=== PATIENT | female | born 1960 | race Caucasian/White ===

== ENCOUNTER → 2017-06-03 | Outpatient (CLI) | payer OTHER ==
[~2017-06-03] MED LIST: CHOL100010 PO; DOCU-94 PO; KETO10TA PO; MULT-506 PO; OXYC-57 PO
--- NOTE | 2017-06-03 08:33 | DIAGNOSTIC IMAGING REPORT ---
RIGHT UPPER EXT JOINT WITHOUT CLINICAL HISTORY: 56 years-old Female with acute right shoulder pain with stiffness and decreased range of motion. History of nonspecific calcium deposit with associated removal in October 2016. COMPARISON: Right shoulder radiographs 05/13/2017 TECHNIQUE: Multiplanar, multi sequence MRI of the right shoulder was performed without intravenous contrast. FINDINGS: ROTATOR CUFF: There is evidence of prior rotator cuff repair with screws fixating the insertional supraspinatus and infraspinatus tendons with screws traversing the anterior and posterior facets of the greater tuberosity. Minimal subcortical cystic changes are seen adjacent to the screw paths. Micrometallic artifact is seen within the adjacent soft tissues. There is moderate thickening of the supraspinatus tendon with moderate to severe thickening of the infraspinatus tendon. There is associated intermediate intrasubstance signal within both of these structures suggesting background tendinosis. There is mild fraying/low-grade partial articular sided tearing of the insertional fibers of the posterior insertional infraspinatus tendon, nicely seen on image 5 of the sagittal T2 series, 5 mm in AP dimension which is not well seen on the coronal series. No high-grade or full-thickness tear identified. The infraspinatus and subscapularis tendons are intact. Muscle signal and morphology is within normal limits without significant atrophy or muscular edema. BICEPS TENDON: The long head biceps tendon is intact. There is mild thickening with intermediate T2 signal noted within the intra-articular portion compatible with mild tendinosis. The biceps john and anchor are intact. LABRUM: There is fraying and irregularity with immediate T2 signal noted involving the superior labrum, greatest anteriorly without discrete acute tear or paralabral cyst identified. GLENOHUMERAL JOINT: Mild osteoarthritis is noted with chondral thinning and minimal marginal spurring. No intra-articular body identified. No large joint effusion. ACROMIOCLAVICULAR JOINT: Mild AC joint osteoarthritis. The acromion has a smooth undersurface. There is trace subacromial/subdeltoid bursitis. OUTLET SPACES: The suprascapular notch and quadrilateral space are without obstructing or space occupying lesions. BONE MARROW: No focal abnormality, fracture or marrow occupying lesion. Minimal patchy edema like signal is present within the humeral head and greater tuberosity, nonspecific. Mild bone marrow edema involves the AC joint, likely reactive. SOFT TISSUES: The periarticular soft tissues are unremarkable. IMPRESSION: 1. Evidence of prior rotator cuff repair with cannulated screws fixating the supraspinatus and infraspinatus tendons within the anterior and posterior facets of the greater tuberosity. 2. There is background moderate supraspinatus and moderate to severe infraspinatus tendinopathy with low-grade partial thickness articular sided tearing of the posterior insertional infraspinatus tendon. No high-grade partial or full-thickness rotator cuff re-tear identified. 3. Mild tendinosis of the intra-articular long head biceps tendon. 4. Mild glenohumeral and acromioclavicular osteoarthritis with trace subacromial/subdeltoid bursitis. The above report was generated using voice recognition software. It may contain grammatical, syntax or spelling errors. Electronically signed by: Matias Pascual M.D. 06/03/2017 8:32 AM Dictated Date/Time: 06/03/2017 8:18 AM
== END | disposition home or self-care (01) ==
LOC: C.MRIBC 07:33
PROVIDERS: ATTEND Orthopaedic Surgery
DX: M75.101 Unspecified rotator cuff tear or rupture of right shoulder, not specified as traumatic (principal)

== ENCOUNTER → 2017-06-03 | Outpatient (CLI) | payer OTHER ==
[2017-06-03 12:16] LABS: BASO % 0.5 %; BASO ABS # 0.03 K/uL (0-0.2); COMPLETE YES; EOS % 0.9 %; HEMATOCRIT 43.8 % (37-47); MEAN CELL VOLUME 92.4 fL (80-100); MEAN CORPUSCULAR HEMOGLOBIN 30.4 pg (25-34); MEAN CORPUSCULAR HGB CONC 32.9 g/dl (32-36); MONO % 5.7 %; NEUT % 50.9 %; PLATELET COUNT 268 K/uL (130-400); RED BLOOD COUNT 4.74 M/uL (4.2-5.4); WHITE BLOOD COUNT 5.48 K/uL (4.8-10.8)
[2017-06-03 13:28] LABS: BLOOD UREA NITROGEN 17 mg/dl (7-18); BUN/CREATININE RATIO 25.3 (10-20); CALCIUM 9.4 mg/dl (8.5-10.1); CARBON DIOXIDE 26 mmol/L (21-32); CHLORIDE 108 mmol/L (98-107); CREATININE 0.68 mg/dl (0.60-1.20); GLUCOSE 82 mg/dl (70-99); POTASSIUM 3.7 mmol/L (3.5-5.1); SODIUM 141 mmol/L (136-145)
== END | disposition home or self-care (01) ==
LOC: C.CPL 10:43
PROVIDERS: ATTEND Orthopaedic Surgery
DX: M75.01 Adhesive capsulitis of right shoulder (principal)

== ENCOUNTER → 2017-06-18 | Day surgery (SDC) | payer OTHER ==
[2017-06-09 14:54] VITALS: Ht 162.6 cm; Wt 65.9 kg
[~2017-06-18] VITALS: Ht 162.6 cm; Wt 65.9 kg
[~2017-06-18] MED LIST changes: +ATROPINE SULFATE 0.1 MG/ML 5ML SYR IV PRN; +BUPIVACAINE/EPINEPHRINE 0.25% 1:200,000 30 ML VIAL ONE; +CEFAZOLIN 1000MG/55 ML D5W IV SCH; +DEXAMETHASONE SOD INJ 4 MG/ML VIAL ONE; +EpHEDrine SULFATE INJ 50 MG/ML AMP IV PRN; +EpINEphrine INJ 1MG/ML AMP 1 MG/ML AMP ONE; +FENTANYL CITRATE INJ 50 MCG/1 ML 2 ML VIAL IV PRN; +FENTANYL CITRATE INJ 50 MCG/1 ML 2 ML VIAL ONE; +LACTATED RINGER'S 1000ML 1,000 ML IV SCH; +LIDOCAINE HCL 2% 2 ML VIAL (20MG/ML) ONE; +METHYLPREDNISOLONE ACETATE 80 MG/ML VIAL ONE; +MIDAZOLAM HCL 1 MG/ML 2ML VIAL ONE; +ONDANSETRON INJ 2 MG/ML 2 ML VIAL IV PRN; +ONDANSETRON INJ 2 MG/ML 2 ML VIAL ONE; +OXYCODONE/ACETAMINOPHEN 5-325 TAB PO PRN; +PROPOFOL IV EMULSION 10 MG/ML 20 ML VIAL IV ONE; +ROPIVACAINE 0.5% 5 MG/ML 30 ML VIAL ONE; +SODIUM CHLORIDE 0.9% 1000ML 1,000 ML IV SCH
--- NOTE | 2017-06-18 06:47 | History & Physical Bridge - SC ---
H&P Re-Evaluation Bridge Note: I have examined the patient, reviewed the History & Physical and in the interval since the performance of the History & Physical I have noted the following changes of clinical significance: No changes noted
--- NOTE | 2017-06-18 10:13 | Discharge Instructions-SurgCtr ---
Discharge Instructions Date of Service Jun 18, 2017. Visit Reason for Visit: Right Shoulder Adhesive Capsulitis Discharge Discharge Diagnosis / Problem: SAME ABOVE Discharge Goals Goal(s): Decrease discomfort, Improve function Activity Recommendations Activity Limitations: as noted below Lifting Limitations: gradually increase as tolerated Exercise/Sports Limitations: gradually increase as tolerated Shower/Bathe: tomorrow Anesthesia . Post Anesthesia Instructions: If you have had General Anesthesia or IV Sedation: * Do not drive today. * Resume driving when surgeon permits. * Do not make important decisions or sign legal documents today. * Call surgeon for: 1. Temperature elevations greater than 101 degrees F. 2. Uncontrollable pain. 3. Excessive bleeding. 4. Persistent nausea and vomiting. 5. Medication intolerance (nausea, vomiting or rash). * For nausea and vomiting use only clear liquids such as: tea, soda, bouillon until nausea subsides, then gradually increase diet as tolerated. * If you have any concerns or questions, call your surgeon's office. If physician is unavailable and it is an emergency, call 911 or go to the nearest emergency room. . Instructions / Follow-Up Instructions / Follow-Up MEDICATIONS: * Resume previous medications unless instructed otherwise by your surgeon. * Always take pain medication on a full stomach or with food to avoid upset stomach. * Do not drink alcohol or drive while taking narcotics. * Ibuprofen or Tylenol may be taken if narcotic not needed. SPECIAL CARE INSTRUCTIONS: __ None _X_ Keep extremity elevated and iced x 48 hours; apply ice 20-30 minutes 8-10 times/day. May remove at night. _X_ Sling (REMOVE AFTER 24 HOURS) __24 hrs/day __ Remove at night __ Shoulder Immobilizer __ 24 hrs/day __ Remove at night _X_ Dressing __ Maintain until seen in office, may shower with plastic over site _X_ Remove dressings in 24-48 hours and then may shower _X_ Cover incisions with band-aids after showering __ Do not remove steri-strips Call physician if chills or temperature rises above 102 degrees or pain unrelieved by prescribed pain medications at . . Diet Recommendations Home Diet: no limitations Fluid Restriction: None Procedures Procedures Performed: Right Shoulder Arthroscopic Capsular Release Pending Studies Studies pending at discharge: no Work Instructions Return To Work: 3 days (OR WHEN PAIN IS TOLERATED ) Medical Emergencies . Who to Call and When: Medical Emergencies: If at any time you feel your situation is an emergency, please call 911 immediately. . Non-Emergent Contact Non-Emergency issues call your: Primary Care Provider Call Non-Emergent contact if: you have a fever, temperature is above 101.5 . . "Provider Documentation" section prepared by Mg Roa. .
[2017-06-18 11:36] VITALS: BP 119/70; PULSE 56; O2SAT 100
--- NOTE | 2017-06-18 11:43 | Anesthesiology Progress Note ---
Anesthesia Post Op Note Date & Time Jun 18, 2017 at 11:42 Vital Signs Pain Intensity: 0 Vital Signs Past 12 Hours Date Time Temp Pulse Resp B/P (MAP) Pulse Ox O2 Delivery O2 Flow Rate FiO2 06/18/17 11:36 56 16 119/70 (86) 100 Room Air 06/18/17 10:57 36.3 76 16 132/78 (96) 96 Room Air 06/18/17 10:53 36.5 55 16 125/70 100 Room Air 06/18/17 10:51 20 06/18/17 10:51 54 20 06/18/17 10:46 60 22 06/18/17 10:46 59 22 100 06/18/17 10:44 36.4 58 20 128/68 99 Room Air 06/18/17 10:41 59 17 06/18/17 10:41 59 17 128/68 100 06/18/17 10:40 56 20 100 06/18/17 10:40 56 20 06/18/17 10:36 126/74 06/18/17 10:35 56 16 06/18/17 10:35 56 16 100 06/18/17 10:31 85/59 06/18/17 10:30 58 20 06/18/17 10:30 58 20 100 06/18/17 10:27 123/73 06/18/17 10:25 55 16 100 06/18/17 10:25 56 16 06/18/17 10:21 126/77 06/18/17 10:20 55 16 100 06/18/17 10:20 55 16 06/18/17 10:16 131/78 06/18/17 10:15 58 17 06/18/17 10:15 58 17 100 06/18/17 10:14 57 17 100 06/18/17 10:14 57 17 06/18/17 10:12 140/77 06/18/17 10:10 36.3 58 14 140/77 100 Mask 6 06/18/17 08:59 65 99 06/18/17 08:59 65 06/18/17 08:58 59 06/18/17 08:58 59 99 06/18/17 08:53 58 06/18/17 08:53 58 18 100 06/18/17 08:52 58 15 100 06/18/17 08:52 58 06/18/17 08:50 119/76 06/18/17 08:47 59 25 100 06/18/17 08:47 59 06/18/17 08:46 117/74 06/18/17 08:42 55 06/18/17 08:42 57 18 100 06/18/17 08:41 124/76 06/18/17 08:37 53 13 100 06/18/17 08:37 53 06/18/17 08:36 163/77 06/18/17 08:32 56 13 100 06/18/17 08:32 57 06/18/17 08:31 138/79 06/18/17 08:27 58 98 06/18/17 08:27 58 06/18/17 08:25 127/77 06/18/17 08:22 59 23 06/18/17 08:22 60 23 100 06/18/17 07:18 36.8 62 16 113/75 (88) 99 Room Air Notes Mental Status: alert / awake / arousable, participated in evaluation Pt Amnestic to Procedure: Yes Nausea / Vomiting: adequately controlled Pain: adequately controlled Airway Patency, RR, SpO2: stable & adequate BP & HR: stable & adequate Hydration State: stable & adequate Anesthetic Complications: no major complications apparent
--- NOTE | 2017-06-18 14:51 | [facility] Post Operative Brief Note ---
Immediate Operative Summary Operative Date Jun 18, 2017. Pre-Operative Diagnosis Right Shoulder Adhesive Capsulitis Post-Operative Diagnosis Same Procedure(s) Performed Right Shoulder Arthroscopic Capsular Release Surgeon Dr Wilson Ese Teacher Surgeon(s) Iván Roa PA-C Estimated Blood Loss Trace Findings as above Specimens None Complication(s) None Disposition Recovery Room / PACU
--- NOTE | 2017-06-18 20:36 | OPERATIVE REPORT ---
DATE OF OPERATION: 06/18/2017 CHIEF COMPLAINT: Postoperative adhesive capsulitis of the right shoulder. POSTOPERATIVE DIAGNOSIS: Postoperative adhesive capsulitis with significant subacromial scarring of the right shoulder. PROCEDURE: Right shoulder diagnostic arthroscopy with extensive debridement, lysis of adhesions and manipulation under anesthesia. SURGEON: Dr. Luther Wilson. FRONT END LOADER OPERATOR: Iván Roa PA-C, whose assistance was necessary for positioning of the arm and helping with instrumentation. ANESTHESIA: General with a right interscalene nerve block. COMPLICATIONS: None. CONDITION: Stable to PACU. INDICATIONS: Julio is a very pleasant 56-year-old female who underwent a right shoulder arthroscopy and rotator cuff repair a year ago at an outside institution. Three months after the procedure, she had a manipulation done under anesthesia, but unfortunately her shoulder continued to be very tight. She came to my office as a second opinion. MRI showed an intact rotator cuff, but significant scarring and thickening of the capsule. She elected to undergo an arthroscopic capsular release. DESCRIPTION OF PROCEDURE: On 06/18/2017, she arrived at [facility] for the above procedure. She was seen in the preoperative holding area and the operative extremity was identified and signed. She was given a preoperative antibiotic and a right interscalene nerve block. She was taken back to the operating room, laid on the table in supine position and put under general anesthesia. She was then put into the beach chair position. The right shoulder was prepped and draped in sterile fashion. Time-out was done and the patient and operative extremity was properly identified. On preoperative physical examination, she had 0 degrees of external rotation and only about 30 degrees of abduction. She was extremely tight. I tried to do a gentle manipulation under anesthesia, but I was unable to manipulate her arm. I placed the scope in the posterior portal. Diagnostic arthroscopy showed no cartilage damage to the humeral head or the glenoid. There was significant redness and scarring of the rotator interval as well as the middle and anterior inferior and glenohumeral ligaments. An anterior portal was made using shaver. An ablator used to get the surface of the rotator interval. Significant time spent releasing the entire rotator interval from the biceps tendon all the way down the undersurface of the coracoid. The biceps tendon looked intact. The rotator cuff had completely healed. An ablator was then used to do a complete lysis of adhesions of the middle and anterior inferior glenohumeral ligaments all the way down to the 6 o'clock position. Care was taken not to disrupt the subscapularis or the axillary nerve. A shaver was used to debride back the thickened capsule back to stable margins. The scope was then put into the subacromial space, a lateral portal was made and a shaver was used to do an extensive debridement of subacromial and subdeltoid spaces. There was significant scar tissue formation, mostly near the coracoacromial ligament. Significant time was spent with an ablator and a shaver to clean up the subacromial and subdeltoid spaces. Once I was done, arthroscopic instruments removed from the shoulder and manipulation was done under anesthesia. I was able to get full range of motion of her shoulder. The shoulder was then injected with 80 mg of Depo-Medrol and 5 mL of Marcaine. The portal sites were then closed with 3-0 nylon. She was then placed in a soft dressing and a regular arm sling. She was then extubated, transferred to a litter and taken to the postanesthesia care unit in stable condition. She tolerated the procedure well. I attest to the content of the Intraoperative Record and any orders documented therein. Any exception s are noted below.
== END | disposition home or self-care (01) ==
LOC: X.SURG 06:47
PROVIDERS: ATTEND Orthopaedic Surgery
DX: M75.01 Adhesive capsulitis of right shoulder (principal)